=== PATIENT | female | born 1990 | race Caucasian/White ===

== ENCOUNTER 2021-08-19 22:56 | Inpatient (IN) ==
[2021-08-19] MEDS ORDERED: PENICILLIN G POTASSIUM 6 MU in DEXTROSE 5% 250 ML IV STA (23:33)
[2021-08-19] MEDS ORDERED: LACTATED RINGER'S 1,000 ML IV PRN (23:33)
[2021-08-19] MEDS ORDERED: OXYTOCIN 30 UNITS/500 ML BAG IV PRN ×2 (23:33→23:40)
[2021-08-19] MEDS ORDERED: BETAMETH SOD PHOS/ACETATE IA 6 MG/ML IM STA (23:33)
--- NOTE | 2021-08-19 23:40 | History & Physical Report ---
Date of Service August 19, 2021 Assessment & Plan (1) premature rupture of membranes (PPROM) with unknown onset of labor: Plan: 35 weeks and 2 days gestation patient has spontaneous rupture of membranes within the last hour was a big gush of fluid and continues to leak she describes very minimal contractions her baby has been active today has been complicated by decreased movement and earlier elevated liver enzymes the elevated liver enzymes has resolved. Sterile speculum exam was performed there is copious fluid in the vagina it is tested nitrazine positive and AmniSure sure positive. Cervix is visualized and is closed. Ultrasound was done at the bedside and reveals a baby in vertex position. Her heart rate tracing is reassuring I reviewed with pediatrics Dr. Ryan he agrees the patient is far enough along to stay at [facility]. I discussed with Dr. Mcclain as well as he is the on-call doctor tomorrow we discussed that there are 2 approaches to management of rupture membranes at 35 weeks and 2 days reviewing the a [facility] guidelines there are pros and cons to both I reviewed these with the patient but she is already starting to feel some contractions at this stage and I have actually recommended active management which would be Pitocin. Patient agrees I did discuss some of the benefits of waiting however I think she is going to labor on her own and there is an increased risk of infection with conservative nonintervention. Patient seems understand this and agrees with Pitocin induction Estimated weight 5 to 6 pounds GBS culture will be ordered however will start penicillin G in the absence of results Betamethasone shot will be given at this time as she is only 35 weeks and 2 days History of Present Illness Primary Care Provider: Martha Purdy Allergies Allergy/AdvReac Type Severity Reaction Status Date / Time No Known Allergies Allergy Verified 08/17/21 09:53 Home Medications Medication Instructions Recorded Confirmed Type prenat.vits,kassie,pxi-legh-wtpsq 1 tab PO DAILY 02/09/21 08/17/21 History breast pump #1 ea 07/27/21 08/17/21 Rx Patient History Surgical History S/P cholecystectomy S/P wisdom tooth extraction Social History (Updated 02/09/21 @ 10:54 by Ofelia Menchaca) Smoking Status: Never smoker Hx Alcohol Use: No Hx Substance Use: No Preferred Language: [place] marital status: marital status details: Russell (30) [phone] Current Living Situation: Spouse Current Living Situation Comment: lives with spouse, 1 dog. current occupational status: employed current occupation: [employer]. Feels Safe at Home: Yes Results & Data ([facility]) Vital Signs (Past 12 Hours) Vital Signs Pulse BP 08/19/21 23:20 71 139/86 Coding Level of Care Code None Diagnoses premature rupture of membranes (PPROM) with unknown onset of labor O42.919
[2021-08-19 23:55] LABS: Hematocrit (blood only) 36.3 % (37-47); Hemoglobin 12.3 g/dL (12.0-16.0); Mean Corpuscular Hemoglobin 31.9 pg (25-34); Mean Corpuscular Hgb Conc 33.9 g/dL (32-36); Mean Platelet Volume 11.8 fL (7.4-10.4); Platelet Count 357 K/uL (130-400); RDW Coefficient of Variation 13.3 % (11.5-14.5); RDW Standard Deviation 45.9 fL (36.4-46.3); Red Blood Count 3.86 M/uL (4.2-5.4); White Blood Count 11.93 K/uL (4.8-10.8)
[2021-08-20] MEDS: PENICILLIN G POTASSIUM 3 MU in DEXTROSE 5% 100 ML IV PRN ×2 (04:06→08:07)
[2021-08-20] MEDS ORDERED: ePHEDrine sulfate 50 MG/ML AMP ONE (04:08)
[2021-08-20] MEDS ORDERED: BUPIVACAINE 0.25% 30 ML VIAL ONE (04:08)
[2021-08-20] MEDS ORDERED: fentaNYL citrate 100 MCG/2 ML VIAL ONE (04:08)
[2021-08-20] MEDS ORDERED: SODIUM CHLORIDE 0.9% INJ 10 ML VIAL ONE (04:08)
[2021-08-20] MEDS ORDERED: fentaNYL 2MCG/ML ROPIVACAINE 1.25MG/ML 100 ML BAG EPI ONE (04:09)
[2021-08-20] MEDS ORDERED: fentaNYL 2MCG/ML ROPIVACAINE 1.25MG/ML 100 ML BAG EPI PRN (04:39)
[2021-08-20] MEDS ORDERED: diphenhydrAMINE 50 MG/ML VIAL IV PRN (04:39)
[2021-08-20] MEDS ORDERED: ONDANSETRON INJ 2 MG/ML 2 ML VIAL IV PRN (04:39)
[2021-08-20] MEDS ORDERED: NALOXONE HCL 1 MG in SODIUM CHLORIDE 0.9% 1000ML 1,000 ML IV PRN (04:39)
[2021-08-20] MEDS ORDERED: NALBUPHINE HCL INJ 10 MG/ML AMP IV PRN (04:39)
[2021-08-20] MEDS ORDERED: ePHEDrine sulfate 50 MG/ML AMP IV PRN (04:39)
[2021-08-20] MEDS ORDERED: NALOXONE HCL 0.4 MG/1 ML VIAL/CARP IV PRN (04:39)
--- NOTE | 2021-08-20 04:39 | Anesthesiology Consultation ---
Date of Service August 20, 2021 Assessment & Plan ASA ASA2 Proposed Anesthesia Anesthesia Type: Labor Epidural Risk / Benefits Reviewed With: PT / POA / Parent / Guardian, Accepts Plan and Informed Consent Obtained History Height/Weight Height: 5 ft 11 in Weight: 117.027 kg Allergies Allergy/AdvReac Type Severity Reaction Status Date / Time No Known Allergies Allergy Verified 08/17/21 09:53 Medications Home Medications Medication Instructions Recorded Confirmed Last Taken prenat.vits,kassie,szq-byih-oocnb 1 tab PO DAILY 02/09/21 08/20/21 08/13/21 breast pump #1 ea 07/27/21 08/17/21 Unknown Active Medications Generic Name Dose Route Start Last Admin Trade Name Freq PRN Reason Stop Dose Admin Lactated Ringer's 1,000 mls @ 125 mls/hr 08/19/21 23:33 08/20/21 00:03 Lr IV 08/21/21 23:32 125 mls/hr .Q8H PRN Administration L&D Protocol Protocol Penicillin G Potassium 3 mu/ 106 mls @ 100 mls/hr 08/20/21 02:33 08/20/21 04:06 Dextrose IV 08/30/21 02:32 100 mls/hr Q4H PRN Administration GBS(+) Until Delivery Oxytocin 30 units in 500 mls @ 5 mls/hr 08/19/21 23:40 08/20/21 03:30 Pitocin IV 08/21/21 23:39 0.3 units/hr .Q24H PRN 5 mls/hr Labor Induction/Augmentation Titration Protocol 0.3 UNITS/HR Exercise / Class Metabolic Activity II 4-5 Yardwork/Stairs/Walk up hill Past Surgical History Surgical History S/P cholecystectomy S/P wisdom tooth extraction Past Anesthesia History No Hx of Anesthesia Complications and No Family Hx of Anesthesia Complications History of PONV No Hx of PONV and No Hx of Motion Sickness Social History Smoking Status: Never smoker Do You Dip or Chew Tobacco: No Hx Alcohol Use: No Hx Substance Use: No substance use type: does not use Review of Systems denies fever/cough/ colds/ chest pain/ SOB/ MEGAN denies MEGAN Physical Exam Vital Signs Last Vital Signs Temp 36.9 C 08/20/21 04:15 Pulse 74 08/20/21 05:06 Resp 18 08/20/21 04:15 BP 133/74 08/20/21 05:06 Pulse Ox 98 08/20/21 05:03 ENMT Mouth: no TMJ abnormality and no dentition abnormality Thyromental Distance: > or= 3.5 Finger Breadths Mallampati Class: II Neck neck extension not limited Respiratory normal respiratory effort; no respiratory distress Auscultation: lungs clear to auscultation bilaterally Cardiovascular Rate/Rhythm: regular rate and regular rhythm Neurologic moves all extremities Psychiatric Orientation: alert and oriented x 3 Testing Laboratory Results 08/19/21 23:44
--- NOTE | 2021-08-20 07:15 | Labor Progress Brief Note ---
Date of Service August 20, 2021 6cm now. R cat 1. Assessment & Plan Admission and Anticipated Discharge Date Admission Date: August 19, 2021 Results & Data ([facility]) Vital Signs (Past 12 Hours) Vital Signs Temp Pulse Resp BP Pulse Ox 08/20/21 07:13 74 99 08/20/21 07:08 76 100 08/20/21 07:03 70 100 08/20/21 07:02 62 128/73 08/20/21 06:58 73 98 08/20/21 06:53 66 99 08/20/21 06:48 73 128/77 99 08/20/21 06:46 77 94 08/20/21 06:43 83 97 08/20/21 06:38 74 97 08/20/21 06:33 79 97 08/20/21 06:32 74 124/70 08/20/21 06:28 80 96 08/20/21 06:23 83 96 08/20/21 06:18 77 97 08/20/21 06:17 74 130/72 08/20/21 06:13 82 96 08/20/21 06:08 85 96 08/20/21 06:03 80 97 08/20/21 06:02 78 127/73 08/20/21 05:58 84 97 08/20/21 05:53 77 98 08/20/21 05:48 70 99 08/20/21 05:47 72 132/77 08/20/21 05:43 71 99 08/20/21 05:38 70 99 08/20/21 05:33 73 100 08/20/21 05:30 73 141/81 H 08/20/21 05:28 76 138/81 100 08/20/21 05:26 87 134/83 08/20/21 05:24 77 134/78 08/20/21 05:23 78 100 08/20/21 05:22 78 144/78 H 08/20/21 05:20 83 140/77 08/20/21 05:18 77 146/83 H 99 08/20/21 05:16 80 135/78 08/20/21 05:14 72 139/75 08/20/21 05:13 69 100 08/20/21 05:12 72 133/74 08/20/21 05:10 78 134/74 08/20/21 05:08 77 136/76 99 05/27/22 05:06 74 133/74 08/20/21 05:04 81 138/77 08/20/21 05:03 76 98 08/20/21 05:02 80 144/83 H 08/20/21 05:00 78 143/82 H 08/20/21 04:58 82 148/87 H 99 08/20/21 04:56 90 144/89 H 08/20/21 04:53 86 98 08/20/21 04:50 89 149/100 H 08/20/21 04:49 86 152/95 H 08/20/21 04:48 94 H 99 08/20/21 04:43 93 H 97 08/20/21 04:38 82 99 08/20/21 04:33 72 142/88 H 97 08/20/21 04:28 74 141/90 H 96 08/20/21 04:15 98.4 F 18 08/20/21 03:32 80 141/90 H 08/20/21 03:30 20 08/20/21 03:22 73 141/94 H 08/20/21 03:07 75 134/83 08/20/21 02:52 67 131/85 08/20/21 02:36 63 135/83 08/20/21 02:16 71 131/91 08/20/21 01:25 62 134/88 08/19/21 23:25 98.8 F 71 18 139/86 08/19/21 23:20 71 139/86 Coding Level of Care Code None
--- NOTE | 2021-08-20 10:57 | Labor Progress Brief Note ---
Date of Service August 20, 2021 Subjective Patient pushing with good effort Assessment & Plan (1) premature rupture of membranes (PPROM) with unknown onset of labor: Plan: pushing with good effort, continue stage 2. anticipate . Admission and Anticipated Discharge Date Admission Date: August 19, 2021 Physical Exam Physical Exam: cx--c/c/+2-3 toco--q2min efm--140s with mod variabiltiy, accels present , variable/early with contractions Results & Data ([facility]) Vital Signs (Past 12 Hours) Vital Signs Temp Pulse Resp BP Pulse Ox 08/20/21 10:53 127 H 97 08/20/21 10:51 168 H 87 L 08/20/21 10:48 154 H 134/80 96 08/20/21 10:45 123 H 92 08/20/21 10:43 122 H 98 08/20/21 10:38 127 H 95 08/20/21 10:33 128 H 97 08/20/21 10:32 112 H 127/69 08/20/21 10:28 119 H 96 08/20/21 10:23 113 H 100 08/20/21 10:21 125 H 91 08/20/21 10:18 100 H 100 08/20/21 10:17 97 H 139/83 08/20/21 10:13 91 H 99 08/20/21 10:10 89 92 08/20/21 10:08 84 100 08/20/21 10:03 83 99 08/20/21 10:02 84 139/81 08/20/21 10:00 18 08/20/21 09:58 81 100 08/20/21 09:53 77 99 08/20/21 09:48 83 134/79 99 08/20/21 09:43 84 99 08/20/21 09:38 75 100 08/20/21 09:33 82 99 08/20/21 09:32 83 133/79 08/20/21 09:30 36.8 C 18 08/20/21 09:28 77 99 08/20/21 09:23 81 100 08/20/21 09:18 76 137/78 100 08/20/21 09:13 78 99 08/20/21 09:08 70 99 08/20/21 09:03 76 135/75 100 08/20/21 09:00 18 08/20/21 08:58 74 100 05 08:53 71 100 08/20/21 08:48 74 100 05 08:47 78 122/66 08/20/21 08:43 73 99 08/20/21 08:38 78 99 08/20/21 08:33 72 98 08/20/21 08:32 72 124/68 08/20/21 08:30 18 08/20/21 08:28 81 98 08/20/21 08:23 80 98 08/20/21 08:18 73 125/67 99 08/20/21 08:13 73 99 08/20/21 08:08 72 99 08/20/21 08:03 74 99 08/20/21 08:02 70 126/71 08/20/21 08:00 18 08/20/21 07:58 69 98 08/20/21 07:53 68 99 08/20/21 07:48 72 123/72 99 08/20/21 07:43 73 99 08/20/21 07:38 72 100 08/20/21 07:33 69 100 08/20/21 07:32 69 122/69 08/20/21 07:28 76 100 08/20/21 07:26 74 92 08/20/21 07:24 36.8 C 18 08/20/21 07:23 67 100 08/20/21 07:18 64 100 08/20/21 07:17 72 127/73 08/20/21 07:13 74 99 08/20/21 07:08 76 100 08/20/21 07:03 70 100 08/20/21 07:02 62 128/73 05 06:58 73 98 08/20/21 06:53 66 99 08/20/21 06:48 73 128/77 99 08/20/21 06:46 77 94 05 06:43 83 97 08/20/21 06:38 74 97 08/20/21 06:33 79 97 05 06:32 74 124/70 05 06:28 80 96 05 06:23 83 96 05 06:18 77 97 05 06:17 74 130/72 05 06:13 82 96 05 06:08 85 96 08/20/21 06:03 80 97 08/20/21 06:02 78 127/73 05 05:58 84 97 08/20/21 05:53 77 98 08/20/21 05:48 70 99 08/20/21 05:47 72 132/77 08/20/21 05:43 71 99 08/20/21 05:38 70 99 08/20/21 05:33 73 100 08/20/21 05:30 73 141/81 H 08/20/21 05:28 76 138/81 100 08/20/21 05:26 87 134/83 08/20/21 05:24 77 134/78 08/20/21 05:23 78 100 08/20/21 05:22 78 144/78 H 08/20/21 05:20 83 140/77 08/20/21 05:18 77 146/83 H 99 08/20/21 05:16 80 135/78 08/20/21 05:14 72 139/75 08/20/21 05:13 69 100 08/20/21 05:12 72 133/74 08/20/21 05:10 78 134/74 08/20/21 05:08 77 136/76 99 08/20/21 05:06 74 133/74 08/20/21 05:04 81 138/77 08/20/21 05:03 76 98 08/20/21 05:02 80 144/83 H 08/20/21 05:00 78 143/82 H 08/20/21 04:58 82 148/87 H 99 08/20/21 04:56 90 144/89 H 08/20/21 04:53 86 98 08/20/21 04:50 89 149/100 H 08/20/21 04:49 86 152/95 H 08/20/21 04:48 94 H 99 08/20/21 04:43 93 H 97 08/20/21 04:38 82 99 08/20/21 04:33 72 142/88 H 97 08/20/21 04:28 74 141/90 H 96 08/20/21 04:15 36.9 C 18 08/20/21 03:32 80 141/90 H 08/20/21 03:30 20 05/27/22 03:22 73 141/94 H 05/27/22 03:07 75 134/83 08/20/21 02:52 67 131/85 08/20/21 02:36 63 135/83 08/20/21 02:16 71 131/91 08/20/21 01:25 62 134/88 08/19/21 23:25 37.1 C 71 18 139/86 08/19/21 23:20 71 139/86 Coding Level of Care Code None Diagnoses premature rupture of membranes (PPROM) with unknown onset of labor O42.919
[2021-08-20] MEDS ORDERED: HYDROCORTISONE ACETATE 25 MG SUPP PR PRN (11:52)
[2021-08-20] MEDS ORDERED: DIPHTHERIA/TETANUS/PERTUSSIS 0.5 ML SYR/VIAL IM ONE (11:52)
[2021-08-20] MEDS ORDERED: OXYTOCIN 30 UNITS/500 ML BAG IV PRN (11:52)
[2021-08-20] MEDS ORDERED: bisacodyL 10 MG SUPP PR PRN (11:52)
[2021-08-20] MEDS ORDERED: BENZOCAINE 20% AER SPR 82.5 GM CAN EXT PRN (11:52)
[2021-08-20] MEDS ORDERED: oxyCODONE/ACETAMINOPHEN 5mg/325mg TAB PO PRN (11:52)
[2021-08-20] MEDS ORDERED: METHYLERGONOVINE MALEATE 0.2 MG/ML AMP IM ONE (11:52)
--- NOTE | 2021-08-20 12:00 | Delivery Summary ---
Vaginal Delivery Summary Date of Service August 20, 2021 Vaginal Delivery Summary and 2nd Degree LAC Pre-operative Diagnosis: at35 3/7 pprom gbs unknown Post-operative Diagnosis: same Procedure: pitocin induction epidural second degree laceration and repair EBL: 450cc Anesthesia: epidural Procedure: The patient presented to labor and delivery with pprom. She started to contract and so induction/augmentation was initiated. The patient progressed to c/c/+2 station. The patient pushed for about one hour to deliver a viable male infant in doa position. A tight nuchal cord was identified and clamped and cut on the perineum. A mild should dystocia was identified and resolved in less than 30 secs with placing the bed flat, Lona and suprapubic pressure. The anterior shoulder (right as the head restituted to blaise) was delivered and then there was still a bit of a body dystocia. The baby was finally delivered. The baby was floppy and was immediately taken to the warmer for attention by the nursery nurses, Dr. Hernandez was present as well. Cord blood and segment were not able to be obtained. Placenta delivered spontaneous, intact with a three vessel cord. Cervix/sulci/rectum were intact. A second degree perineal laceration was repaired in the normal standard fashion. Hemostasis obtained with dilute pitocin and fundal massage. Apgars were pending at the time of this note. Mother and baby doing well at the end of the delivery. [facility] Vaginal Delivery Charge Delivery Type Details: and 2nd Degree LAC
[2021-08-20] MEDS: IBUPROFEN 600 MG TAB PO PRN ×3 (12:05→23:55)
--- NOTE | 2021-08-20 13:09 | Anesthesia Procedure Note ---
Date of Service August 20, 2021 Anesthesia Post Epidural Note Vital Signs Vital Signs: Temp Pulse Resp BP Pulse Ox 36.8 C 100 H 18 147/86 H 98 08/20/21 11:34 08/20/21 13:02 08/20/21 12:40 08/20/21 13:02 08/20/21 11:33 Pain Intensity Vaginal: Pain Intensity: 4 Notes Mental Status: alert / awake / arousable Nausea / Vomiting: adequately controlled Pain: adequately controlled Airway Patency, RR, SpO2: stable & adequate BP & HR: stable & adequate Hydration State: stable & adequate Neuraxial Anesthesia: was administered and sensory block is resolving Anesthetic Complications: no major complications apparent and Pt Satisfied with anesthetic care Epidural: Removed without complications and With tip intact
[2021-08-20] MEDS: ACETAMINOPHEN 325 MG TAB PO PRN (14:40)
[2021-08-20] MEDS ORDERED: METHYLERGONOVINE MALEATE 0.2 MG/ML AMP ONE (15:57)
[2021-08-20] MEDS: DOCUSATE SODIUM 100 MG CAP PO SCH (21:06)
[2021-08-21] MEDS: IBUPROFEN 600 MG TAB PO PRN ×4 (06:00→21:35)
--- NOTE | 2021-08-21 06:05 | Obstetrical Progress Note ---
Date of Service <Sheila Juan MD - Last Filed: 08/21/21 08:25> August 21, 2021 Assessment & Plan <Sheila Juan MD - Last Filed: 08/21/21 08:25> (1) Vaginal delivery: 31 yo now PPD1 from at 35wk3d with PPROM -Continue routine care -Vitals reviewed- HDS, afebrile -Given betamethasone for labor, PCN intrapartum for GBS unknown -Pain control with ibuprofen, acetaminophen PRN - team to continue following -Hgb 9.7, asymptomatic <Jonah Mcclain MD - Last Filed: 08/24/21 08:25> (1) Vaginal delivery: Subjective <Sheila Juan MD - Last Filed: 08/21/21 08:25> Ambulation: ambulating normally Voiding: no voiding problems Passing Gas:: No Diet Tolerance:: regular diet Lochia:: Small Feeding Type:: bottle feeding (pumping) Current Pain Level(1-10): 0 Pt doing well overall, no acute complaints or distress. Pain well controlled with medication. Would like to see team again today. Review of Systems Denies fever/chills. Denies dyspnea, cough. Denies chest pain. Denies breast pain or discharge. Denies dysuria. Denies headache. Denies back pain. Physical Exam <Sheila Juan MD - Last Filed: 08/21/21 08:25> General: Alert, oriented, no acute distress Cardiac: Regular rate and rhythm, normal S1, S2. No murmurs appreciated. Respiratory: Clear to auscultation b/l with good air flow entry, symmetric chest rise and fall. No wheezes or crackles. No increased work of breathing or accessory muscle use Abdomen: Soft, nontender, nondistended. Fundus firm and palpable at 2 cm below umbilicus. No guarding or rebound. Skin: No rashes or lesions Extremities: Warm, dry, well-perfused with capillary refill <2s b/l. No lower extremity edema, erythema, swelling or calf tenderness b/l. Results & Data ([facility]) <Sheila Juan MD - Last Filed: 08/21/21 08:25> Vital Signs (Past 12 Hours) Vital Signs Temp Pulse Resp BP Pulse Ox 08/20/21 23:45 36.4 C L 72 20 113/71 96 08/20/21 19:07 36.7 C 78 18 113/71 97 <Jonah Mcclain MD - Last Filed: 08/24/21 08:25> Co-Signing Physician Notes Patient seen and evaluated and agree with the above findings and plan. Routine care Resident Activity Tracking <Sheila Juan MD - Last Filed: 08/21/21 08:25> Resident Involvement: Resident Care Provided Care Provided: OB Delivery
[2021-08-21 07:12] LABS: Hematocrit (blood only) 29.6 % (37-47); Hemoglobin 9.7 g/dL (12.0-16.0)
[2021-08-21] MEDS: PRENATAL VITAMIN 1 TAB PO SCH (08:15)
[2021-08-21] MEDS: DOCUSATE SODIUM 100 MG CAP PO SCH ×2 (08:15→21:17)
[2021-08-21] MEDS ORDERED: bisacodyL 5 MG TABEC PO SCH (20:00)
[2021-08-22] MEDS: IBUPROFEN 600 MG TAB PO PRN ×3 (01:39→11:43)
[2021-08-22] MEDS: DOCUSATE SODIUM 100 MG CAP PO SCH (08:15)
[2021-08-22] MEDS: PRENATAL VITAMIN 1 TAB PO SCH (08:15)
--- NOTE | 2021-08-22 08:29 | Obstetrical Progress Note ---
Date of Service August 22, 2021 Assessment & Plan (1) Vaginal delivery: Plan d/c to nesting. Instructions given. Rh+ hgb 9.7 but doing well. Day #:: 2 Subjective Ambulation: ambulating normally Voiding: no voiding problems Passing Gas:: Yes Diet Tolerance:: regular diet Lochia:: Small Feeding Type:: breast feeding (with supplementing) Feels very sore and tired. Baby under bili lights. Physical Exam Constitutional WD/WN, vitals as above Respiratory normal respiratory effort, lungs clear to auscultation Cardiovascular RRR, no murmur, no edema Extremities: + edema (tr); no calf tenderness Gastrointestinal (Abdomen) soft, nt, nd, ff/nt 1 below u Psychiatric A+Ox3, euthymic affect Results & Data ([facility]) Vital Signs (Past 12 Hours) Vital Signs Temp Pulse Resp BP Pulse Ox 08/21/21 23:45 36.7 C 61 18 108/68 08/21/21 22:35 36.5 C 75 16 106/67 96
[2021-08-22] MEDS: ACETAMINOPHEN 325 MG TAB PO PRN (14:38)
== END 2021-08-22 14:49 | disposition home or self-care (01) | DRG 807 ==
LOC: OPB 22:56 → 4S1 22:57 → 4E2 08-20 14:28